=== PATIENT | female | born 1980 | race Caucasian/White ===

== ENCOUNTER → 2023-06-13 15:24 | Outpatient (REF) | payer BC, SELFPAY | LOC: HWRAD 15:24 | PROVIDERS: ATTENDING PHYSICIAN Physician Assistant Medical | DX: R20.0 Anesthesia of skin (principal); R20.2 Paresthesia of skin | CPT/HCPCS: 73630 ==

== ENCOUNTER → 2023-07-25 08:26 | Outpatient (REF) | payer BC, SELFPAY | LOC: WDC 08:26 | PROVIDERS: ATTENDING PHYSICIAN Physician Assistant Medical | DX: Z12.31 Encounter for screening mammogram for malignant neoplasm of breast (principal) | CPT/HCPCS: 77063; 77067 ==

== ENCOUNTER → 2023-10-31 12:17 | Outpatient (REF) | payer BC, SELFPAY | LOC: WDC 12:17 | PROVIDERS: ATTENDING PHYSICIAN Physician Assistant Medical | DX: R92.2 Inconclusive mammogram (principal); R92.30 Dense breasts, unspecified | CPT/HCPCS: 76641 ==

== ENCOUNTER → 2024-07-30 08:48 | Outpatient (REF) | payer BC, SELFPAY | LOC: WDC 08:48 | PROVIDERS: ATTENDING PHYSICIAN Physician Assistant Medical | DX: Z12.31 Encounter for screening mammogram for malignant neoplasm of breast (principal) | CPT/HCPCS: 77063; 77067 ==

== ENCOUNTER → 2024-10-29 10:47 | Outpatient (REF) | payer BC, SELFPAY | LOC: WDC 10:47 | PROVIDERS: ATTENDING PHYSICIAN Physician Assistant Medical | DX: R92.30 Dense breasts, unspecified (principal) | CPT/HCPCS: 76641 ==